=== PATIENT | female | born 1955 ===

== ENCOUNTER 2019-10-29 05:55 | Day surgery (SDC) | payer OTHER | END 2019-10-29 13:50 | disposition home or self-care (01) | LOC: AMB-ENDOS 05:55 | PROVIDERS: ATTEND Colon & Rectal Surgery | DX: K62.89 Other specified diseases of anus and rectum (principal); K52.89 Other specified noninfective gastroenteritis and colitis; K64.8 Other hemorrhoids; Z12.11 Encounter for screening for malignant neoplasm of colon ==